=== PATIENT | female | born 1995 | race African-American/Black ===

== ENCOUNTER 2025-02-14 09:50 | Outpatient (CLI) | payer OTHER, SELFPAY ==
--- OUTSIDE RECORDS SUMMARY | 2025-02-14 10:05 | XMS_ITS | Clinical Summary ---
Author Organization [facility] Address [address] [place] [address] Phone Care Team Providers Care Psychologist Military Personnel Name Role Phone Unavailable Primary Care Provider Unavailabl e Allergies No known active allergies Medications ibuprofen (MOTRIN) 600 mg tablet Take 1 Tablet (600 mg) by mouth every 6 hours as needed for Pain. 40 Tablet 07/23/2024 8:58 PM CDT 07/23/2024 Active HYDROcodone-acet aminophen (NORCO) 5-325 mg tabletIndication s:Sprain of right ankle, unspecified ligament, initial encounter Take 1 Tablet by mouth every 4 hours as needed for Pain. Max Daily Amount: 6 Tablets 30 Tablet 07/23/2024 8:58 PM CDT 07/23/2024 Active Encounters Date Type Department Care Team Description 01/21/2025 External Device Data [facility] Provider, Abstract 01/08/2025 External Device Data [facility] Provider, Abstract 01/07/2025 External Device Data [facility] Provider, Abstract 12/24/2024 External Device Data [facility] Provider, Abstract 12/10/2024 External Device Data [facility] Provider, Abstract 11/26/2024 External Device Data [facility] Provider, Abstract 11/26/2024 External Device Data [facility] Provider, Abstract 11/26/2024 External Device Data [facility] AB[facility]CTION Provider, Abstract from Last 3 Months Social History Tobacco Use Types Packs/Day Years Used Date Smoking Tobacco: Never Tobacco Cessation:Counseling Given: Not Answered Feeling Safe Answer Date Recorded Are you in a relationship wi th someone who hurts you emotionally and/or physically? No 07/23/2024 Comments Unknown Sex and Gender Information Value Date Recorded Sex Assigned at Not on file Legal Sex Female 7:39 PM CDT Gender Identity Not on file Sexual Orientation Not on file Last Filed Vital Signs Vital Sign Reading Time Taken Comments Blood Pressure 159/113 07/23/2024 8:43 PM CDT Pulse 89 07/23/2024 8:50 PM CDT Temperature 36.3 C (97.3 F) 07/23/2024 7:41 PM CDT Respiratory Rate 21 07/23/2024 8:50 PM CDT Oxygen Saturation 100% 07/23/2024 8:50 PM CDT Inhaled Oxygen Concentration - - Weight 122.9 kg (271 lb) 07/23/2024 7:41 PM CDT Height 172.7 cm (5' 8 ) 07/23/2024 7:41 PM CDT Body Mass Index 41.21 07/23/2024 7:41 PM CDT Plan of Treatment Health Maintenance Due Date Last Done Comments HPV/Cotest (21-29) 2017 DTAP/TDAP/TD VACCINES (7 - T d or Tdap) 01/24/2018 01/25/2008, 07/05/2000, 07/02/1999, Additional history exists INFLUENZA VACCINE (#1) 2024 CERVICAL CANCER SCREENING 11/23/2025 PAP SMEAR 11/23/2025 11/23/2022 HEPATITIS B VACCINES Completed 04/02/1997, 1996, 1996 HPV VACCINES Completed 07/19/2012, 1210/2008, 01/25/2008 Insurance WORKERS COMP RX [employer]RX Commercial
--- OUTSIDE RECORDS SUMMARY | 2025-02-14 10:05 | XMS_ITS | Clinical Summary ---
Author Organization [facility] Virtual Care Address [facility] [place] [address] Phone Care Team Providers Care Jewelry Bench Worker Name Role Phone Nicholas Avila MD Primary Care Prov ider Allergies No known active allergies Medications naproxen (NAPROSYN) 500 mg tablet Take 1 tablet (500 mg total) by mouth 2 (two) times a day with meals 30 tablet 3 Active benzonatate (TESSALON) 100 mg capsuleIndications :Cough Take 1 capsule (100 mg total) by mouth every 8 (eight) hours 21 capsule 4 Active ondansetron ODT (ZOFRAN-ODT) 4 mg disintegrating tablet Take 1 tablet (4 mg total) by mouth every 8 (eight) hours as needed for nausea or vomiting 20 tablet 4 Active ketorolac (TORADOL) 10 mg tablet Take 1 tablet (10 mg total) by mouth every 6 (six) hours as needed for pain 20 tablet 4 Active HYDROcodone-acetam inophen (NORCO) 5-325 mg per tabletIndications: Pain Take 1 tablet by mouth every 6 (six) hours as needed for pain for up to 15 doses 15 tablet 4 Active methylPREDNISolone (Medrol, Kenji,) 4 mg DosepackIndication s:Finger injury, initial encounter Take as directed on package 1 packet 4 Active ondansetron ODT (ZOFRAN-ODT) 4 mg disintegrating tablet Take 1 tablet (4 mg total) by mouth every 8 (eight) hours as needed for nausea or vomiting 20 tablet 5 Active metoclopramide (REGLAN) 10 mg tablet Take 1 tablet (10 mg total) by mouth every 6 (six) hours 30 tablet 5 Active famotidine (PEPCID) 20 mg tablet Take 1 tablet (20 mg total) by mouth 2 (two) times a day as needed for heartburn 20 tablet 5 Active Active Problems Problem Noted Date Diagnosed Date Left hand pain 10/09/2024 Finger injury, initial encounter 10/09/2024 Encounters Date Type Department Care Team Description 01/20/2025 11:01 AM CDT - 01/20/2025 2:44 PM CDT Emergency [address] [address] Shortness of breath (Primary Dx) Discharge Disposition: Discharge to home or self care from Last 3 Months Immunizations Immunization Administration Dates Next Due DTP 01/10/1997,1996,1996 DTaP 07/05/2000,07/02/1999 HPV, Quadrivalent 07/19/2012,09/22/2009,01/25/20 08 Hep A, Ped Unspecified 09/22/2009 Hep A, Pediatric 01/25/2008 Hep B, Adolescent or Pediatric 04/02/1997,1995,1996 HiB 07/02/1999, 7,1996,08/29 Influenza, Unspecified 12/21/2023(Deferr ed: Patient Refused),07/23/2022(Deferred: Patient Refused),07/23/2022(Deferred: Patient Refused) MMR 02/27/2014,07/05/2000 Meningococcal MCV4P (Menactra) 01/25/2008 Meningococcal Polysaccharide (Menomune) 09/22/2009 OPV 07/05/2000, 9,01/10/1997,10/28,1996 Tdap 01/25/2008 Varicella 01/25/2008,12/12/2002 Medical History Medical History Date Comments Obesity Alpha thalassemia 02/10/2023 labs from [facility] Family History Medical History Relation Name Comments No Known Problems Father No Known Problems Mother Relation Name Status Comments Father Alive Mother Alive Social History Tobacco Use Types Packs/Day Years Used Date Smoking Tobacco: Never Smokeless Tobacco: Never Tobacco Cessation:Counseling Given: Not Answered Alcohol Use Standard Drinks/Week Comments Yes 0 (1 standard drink = 0.6 oz pur e alcohol) occasional AUDIT-C Answer Date Recorded Q1: How often do you have a drink containing alc ohol? 2-3 times a week 12/06/2022 Q2: How many drinks containi ng alcohol do you have on a typical day when you are drinking? 1 or 2 12/06/2022 Q3: How often do you have si x or more drinks on one occasion? Weekly 12/06/2022 PHQ-2 Answer Date Recorded PHQ-2 Total Score (If total score is 3 or more points, staff should administer the PHQ-9) 0 11/23/2022 Personal Safety Answer Date Recorded Have you ever been in or are you currently in a harmful physical or emotional relationship or is someone making you feel afraid or unsafe? Denies 01/20/2025 Comments No Sex and Gender Information Value Date Recorded Sex Assigned at Not on file Legal Sex Female 10:12 AM CDT Gender Identity Female 07/29/2023 9:35 AM CDT Sexual Orientation Not on file Obstetrics History Last Filed Vital Signs Vital Sign Reading Time Taken Comments Blood Pressure 140/79 01/20/2025 2:43 PM CDT Pulse 77 01/20/2025 2:43 PM CDT Temperature 36.8 C (98.3 F) 01/20/2025 2:43 PM CDT Respiratory Rate 18 01/20/2025 2:43 PM CDT Oxygen Saturation 100% 01/20/2025 2:43 PM CDT Inhaled Oxygen Concentration - - Weight 121.6 kg (268 lb) 01/20/2025 11:59 AM CDT Height 172.7 cm (5' 8 ) 01/20/2025 11:59 AM CDT Body Mass Index 40.75 01/20/2025 11:59 AM CDT Plan of Treatment Health Maintenance Due Date Last Done Comments Hepatitis C Screening 1996 DTaP/Tdap/Td Vaccine (7 - Td or Tdap) 01/24/2018 01/25/2008, 07/05/2000, 07/02/1999, Additional history exists Cervical Cancer Screening 11/23/2023 11/23/2022 Depression Screening 11/23/2023 11/23/2022 Regular Well Visit/Exam 18-64 11/23/2023 11/23/2022 Covid-19 Vaccine ( season) 2024 03/05/2022 Hepatitis B Screening Completed 04/02/1997 , 1996, 1996 Varicella Vaccines Completed 01/25/2008, 12/12/2002 HPV Vaccines Completed 07/19/2012, 12/0 10/2008, 01/25/2008 Influenza Vaccine Discontinued Pneumococcal vaccine <65 Aged Out No longer eligible based on patient's age to complete this topic Procedures Procedure Name Priority Date/Time Associated Diagnosis Comments XR CHEST PA LATERAL 2 VIEWS ED 01/20/2025 12:45 PM CDT EGFR STAT 01/20/2025 12:23 PM CDT DIFFERENTIAL AUTO STAT 01/20/2025 12: 23 PM CDT D-DIMER, QUANTITATIVE STAT 01/20/2025 12:23 PM CDT TROPONIN T HIGH-SENSITIVITY SERIES (BASELINE, 2HR, 4HR, 6HR) STAT 01/20/2025 12:23 PM CDT COMPREHENSIVE METABOLIC PANEL STAT 01/20/2025 12:23 PM CDT CBC WITH AUTO DIFFERENTIAL STAT 01/20/2025 12:23 PM CDT INFLUENZA A/B, RSV, AND COVID-19 PCR STAT 01/20/2025 12:23 PM CDT ECG 12-LEAD STAT 01/20/2025 12:04 PM CDT PAP WITH REFLEX TO HIGH RISK HPV Routine 11/23/2022 7:26 AM NAUMKEAG OPERATOR Encounter for well woman exam with routine gynecological exam Screening for cervical cancer from Last 3 Months or Most Recently Relevant to Health Maintenance Results * XR Chest Pa Lateral 2 Vw (01/20/2025 12:45 PM CDT) Anatomical Region Laterality Modality Body, Chest N/A Computed Radiogr aphy 01/20/2025 1:09 PM CDT Narrative 01/20/2025 1:13 PM CDT EXAM DESCRIPTION: XR CHEST PA LATERAL 2 VIEWS REASON FOR STUDY: Shortness of breath since last night. TECHNIQUE: PA and lateral radiographic views of the chest COMPARISON: Chest radiograph 11/10/2024 FINDINGS: LUNGS/PLEURAE: No consolidation or pneumothorax. No pleural effusion. HEART/MEDIASTINUM: Heart size is normal. Normal mediastinal and hilar contours. HARDWARE/LINES/TUBES: None. BONES: No acute findings. IMPRESSION: No acute radiographic abnormality. THIS IS AN ELECTRONICALLY VERIFIED FINAL REPORT 01/20/2025 1:13 PM - Electronically signed by Julio Do M.D. LB T: Report ID: [id number] Reading Location: [id number] Procedure Note Julio Do MD - 01/20/2025 EXAM DESCRIPTION: XR CHEST PA LATERAL 2 VIEWS REASON FOR STUDY: Shortness of breath since last night. TECHNIQUE: PA and lateral radiographic views of the chest COMPARISON: Chest radiograph 11/10/2024 FINDINGS: LUNGS/PLEURAE: No consolidation or pneumothorax. No pleural effusion. HEART/MEDIASTINUM: Heart size is normal. Normal mediastinal and hilar contours. HARDWARE/LINES/TUBES: None. BONES: No acute findings. IMPRESSION: No acute radiographic abnormality. THIS IS AN ELECTRONICALLY VERIFIED FINAL REPORT 01/20/2025 1:13 PM - Electronically signed by Julio Do M.D. LB T: Report ID: [id number] Reading Location: [id number] Alivia Lawler PA IMG XR PROCEDURES Final Resul t * Troponin T high-sensitivity series (baseline, 2hr, 4hr, 6hr) (01/20/2025 12:23 PM CDT) Pathologist [facility] Trop T hs <6 <=14 ng/L Comment: Interpretive Data For further hscTnT resources including the diagnostic algorithm and an aid in interpretation, copy and paste this link: [email or web address].testcatalog.org/[email or web address] Current Interpretive Data last revised 2020. Blood 01/20/2025 12:2 3 PM CDT 01/20/2025 12:26 PM CDT Alivia BURNS LAB BLOOD ORDERABLES Final Re sult [facility] [address] [employer] [place] [address] * Influenza A/B, RSV, and COVID-19 PCR Nasopharyngeal (01/20/2025 12:23 PM CDT) [facility] COVID-19 RNA Negative Negative Influenza A RNA Negative Negative [facility] Influenza B RNA Negative Negative [facility] RSV RNA Negative Negative [facility] Comment: Interpretive data: Testing performed by [facility]. This test is performed using the [employer] Xpert Xpress CoV-2/Flu/RSV plus assay. This is a multiplex, real-time reverse transcriptase PCR assay intended for the qualitative detection of nucleic acid from SARS-CoV-2, influenza A, influenza B, and respiratory syncytial virus. This assay has been cleared by the [place] Food and Drug administration. The performance characteristics have been verified by the [facility]. Results must be considered in the clinical context, and a negative result does not rule out infection. Interpretive Data last revised 2023 Nasopharyngeal 01/20/2025 12 :23 PM CDT 01/20/2025 12:26 PM CDT Narrative [facility] - 01/20/2025 1:06 PM CDT Is the Patient experiencing symptoms consistent with COVID?->Unknown Alivia BURNS LAB MICROBIOLOGY - GENERAL OR DERABLES Final Result Performing Organization Address City/[facility]/ZIP Co de Phone Number [facility] [address] [place] [address] * eGFR (01/20/2025 12:23 PM CDT) [facility] eGFR >90 >=60 mL/min/1. 73 m2 Comment: Interpretive Data Reference Interval Normal >/= 90 mL/min/1.73m2 Mildly decreased* 60 - 89 mL/min/1.73m2 Mildly to moderately decreased 45 - 59 mL/min/1.73m2 Moderately to severely decreased 30 - 44 mL/min/1.73m2 Severely decreased 15 - 29 mL/min/1.73m2 Kidney Failure < 15 mL/min/1.73m2 *Relative to young adult level Estimated glomerular filtration rate is determined by the 2020 CKD-EPI equation recommended by the National Kidney Foundation (A Unifying Approach to GFR Estimation: Recommendations of the NKF-ASK Task Force on Reassessing the Inclusion of Race in Diagnosing Kidney Disease, JASN 2020). The CKD-EPI equation should not be used for patients with unstable renal function and has not been validated in children and those over 70. Current interpretive data was last reviewed 2021. Blood 01/20/2025 12:2 3 PM CDT 01/20/2025 12:26 PM CDT us Alivia BURNS LAB BLOOD ORDERABLES Final Re sult [facility] [address] [place] [address] * (ABNORMAL) Differential, auto (01/20/2025 12:23 PM CDT) [facility] Neutrophil abs 3.4 1.5 - 6.5 K/cumm Imm gran abs 0.0 0.0 - 0.1 K/cumm [facility] Lymphocyte abs 3.5(H) 0.8 - 3.3 K/cumm [facility] Monocyte abs 0.7 0.2 - 0.8 K/cumm [facility] Eosinophil abs 0.1 0.0 - 0.5 K/cumm [facility] Basophil abs 0.1 0.0 - 0.1 K/cumm [facility] Neutrophil pct 43.3 % [facility] Comment: Interpretive Data Percent cell count reference ranges are not reported, since discordance with absolute values may lead to misinterpretation of CBC data. Current Interpretive Data was last revised on 2018. Imm gran pct 0.3 % [facility] Comment: Interpretive Data Percent cell count reference ranges are not reported, since discordance with absolute values may lead to misinterpretation of CBC data. Current Interpretive Data was last revised on 2018. Lymphocyte pct 44.7 % [facility] Comment: Interpretive Data Percent cell count reference ranges are not reported, since discordance with absolute values may lead to misinterpretation of CBC data. Current Interpretive Data was last revised on 2018. Monocyte pct 9.1 % [facility] Comment: Interpretive Data Percent cell count reference ranges are not reported, since discordance with absolute values may lead to misinterpretation of CBC data. Current Interpretive Data was last revised on 2018. Eosinophil pct 1.4 % [facility] Comment: Interpretive Data Percent cell count reference ranges are not reported, since discordance with absolute values may lead to misinterpretation of CBC data. Current Interpretive Data was last revised on 2018. Basophil pct 1.2 % [facility] Comment: Interpretive Data Percent cell count reference ranges are not reported, since discordance with absolute values may lead to misinterpretation of CBC data. Current Interpretive Data was last revised on 2018. Blood 01/20/2025 12:2 3 PM CDT 01/20/2025 12:26 PM CDT us Alivia BURNS LAB BLOOD ORDERABLES Final Re sult [facility] [address] [facility] [place] [address] * (ABNORMAL) CBC with auto differential (01/20/2025 12:23 PM CDT) WBC 7.8 3.8 - 9.9 K/cumm Hgb 8.3(L) 11.9 - 15.5 g/dL [facility] Hct 31.4(L) 35.6 - 45.5 % [facility] Plt 420(H) 150 - 400 K/cumm [facility] MPV 9.1 9.1 - 12.3 fL [facility] RBC 5.45(H) 3.90 - 5.20 M/cumm [facility] MCV 57.6(L) 81.3 - 96.4 fL [facility] MCH 15.2(L) 27.1 - 33.3 pg [facility] MCHC 26.4(L) 32.3 - 35.7 g/dL [facility] RDW CV 23.8(H) 11.1 - 14.9 % [facility] RDW SD 44.7 35.7 - 48.1 fL [facility] NRBC abs 0.00 0.00 - 0.01 K/cumm [facility] Blood 01/20/2025 12:2 3 PM CDT 01/20/2025 12:26 PM CDT Alivia BURNS LAB BLOOD ORDERABLES Final Re sult [facility] [address] [facility] [place] [address] * D-dimer, quantitative (01/20/2025 12:23 PM CDT) D-Dimer 360 <=499 ng/mL FEU Comment: Interpretive data FDA approved the D-dimer, in conjunction with a low or moderate pretest probability score, to exclude venous thromboembolic events (VTE) (PE and DVT) in outpatients when the D-dimer result is < 500 ng/ml FEU. Evidence supports using an age-adjusted D-dimer cut-off for outpatients older than 50 (age x 10) to improve specificity without sacrificing sensitivity. Example: age 68, VTE cut-off 680 ng/ml FEU. References; Schouten HT et al. Brit Med J. 2013;346:f2492. Saadia et al. Annals Int Med. 2015;163:701-11. Current interpretive data was last revised on 2019. Blood 01/20/2025 12:2 3 PM CDT 01/20/2025 12:26 PM CDT Alivia BURNS LAB BLOOD ORDERABLES Final Re sult [facility] [address] [facility] [place] [address] * Comprehensive metabolic panel (01/20/2025 12:23 PM CDT) Sodium 139 135 - 145 mmol/L Potassium, pl 3.9 3.3 - 4.9 mmol/L [facility] Chloride 105 97 - 110 mmol/L [facility] CO2 24 22 - 32 mmol/L [facility] Anion gap 10 2 - 15 mmol/L [facility] BUN 8 6 - 25 mg/dL [facility] Creatinine 0.61 0.60 - 1.10 mg/dL [facility] Glucose 84 70 - 199 mg/dL [facility] Comment: Interpretive Data Fasting glucose >/= 126 mg/dl is diagnostic for diabetes. Fasting is defined as no caloric intake for at least 8 hours. Fasting glucose between 100 mg/dl to 125 mg/dl is diagnostic of prediabetes. In a patient with classic symptoms of hyperglycemia or hyperglycemic crisis, a random glucose >/= 200 mg/dl is diagnostic for diabetes. In the absence of unequivocal hyperglycemia, results should be confirmed by repeat testing. The classification and Diagnosis of Diabetes Diabetes Care 2021; 46: S19-S40. Current interpretive data was last revised 2022. Calcium 9.2 8.5 - 10.3 mg/dL [facility] Bilirubin, total 0.2 0.1 - 1.2 mg/dL [facility] Protein, pl 7.3 6.5 - 8.5 g/dL [facility] Albumin 4.4 3.5 - 5.0 g/dL [facility] Alk phos 70 40 - 130 Units/L [facility] ALT 9 7 - 45 Units/L [facility] AST 19 10 - 45 Units/L [facility] Blood 01/20/2025 12:2 3 PM CDT 01/20/2025 12:26 PM CDT Alivia BURNS LAB BLOOD ORDERABLES Final Re sult [facility] [address] [facility] [place] [address] * ECG 12 lead (01/20/2025 12:04 PM CDT) Ventricular Rate EKG/Min 71 BPM [facility] Atrial Rate 71 BPM [facility] WI-Interval (MSEC) 176 ms [facility] QRS-Interval (MSEC) 94 ms [facility] QT-Interval (MSEC) 398 ms [facility] QTc 432 ms [facility] P [place] 44 degrees [facility] R [place] 43 degrees [facility] T [place] 39 degrees [facility] Diagnosis Normal sinus rhythm Normal ECG When compared with ECG of 10-NOV-2024 10:31, No significant change was found Confirmed by LOVELY MORTON M.D. ([id number]) on 01/21/2025 8:50:36 AM [facility] 01/20/2025 12:0 4 PM CDT 01/21/2025 8:50 AM CDT us Alivia BURNS ECG ORDERABLES Final Result Performing Organization Address [facility] de Phone Number [facility] * Pap with reflex to High Risk HPV (11/23/2022 7:26 AM NAUMKEAG OPERATOR) Thin prep (Pap test) 11/23/2022 7:26 AM NAUMKEAG OPERATOR 11/24/2022 7:26 AM NAUMKEAG OPERATOR Narrative PATHOLOGY [facility] - 11/28/2022 11:00 AM NAUMKEAG OPERATOR [facility] Department of Pathology [address] [id number] Final Report Note to Patients: This report may contain a detailed description of human tissue sent by a health care provider to the laboratory for pathologic evaluation. The content of this report is essential for diagnosis and may provide important critical findings. This information may be unfamiliar to patients to review without a medical professional present. It is advised that the patient review this report in the presence of a health care provider who can answer questions and explain the details. Patient Name: APARNA VELASCO Address: [address], [place] Gender: F : 1995 (Age: 27) Service: Location: [facility] #: [id number] Patient Type: [facility] SPECIMEN Taken: 11/23/2022 Received: 11/24/2022 Accessioned:: 11/25/2022 Reported: 11/28/2022 [facility]ician(s): [facility] Diagnosis: Imaged Thinprep Pap Test w/ Reflex HPV - Dewaxer Cytologic Material: Statement of Specimen Adequacy: - Satisfactory for evaluation; endocervical/transformation zone component present General Categorization: - Negative for intraepithelial lesion or malignancy OLIVA Montemayor(ASCP) Report Electronically Reviewed and Signed Out By OLIVA Montemayor(ASCP) 11/28/2022 11:00:44Specimen(s) Received: A: Imaged Thinprep Pap Test w/ Reflex HPV - Dewaxer Cytologic Material Clinical History: The Pap test is a screening test used to aid in the detection of cervical cancer and its precursors. It should not be the sole means by which malignant and premalignant lesions are diagnosed. Both false negative and false positive results may occur. It also has poor sensitivity for the detection of endometrial lesions and should not be used to evaluate suspected endometrial abnormalities. For these reasons it is most important to obtain Pap tests at regular intervals. The performance characteristics of some immunohistochemical stains, fluorescence in-situ hybridization tests and immunophenotyping by flow cytometry cited in this report (if any) were determined by the Surgical Pathology Department at [facility] as part of an ongoing quality process lead program and in compliance with federally mandated regulations drawn from the Clinical Laboratory Improvement Act of 1988 (CLIA '88). Some of these tests rely on the use of analyte specific reagents and are subject to specific labeling requirements by the US Food and Drug Administration. Such diagnostic tests may only be performed in a facility that is certified by the Department of Health and Human Services as a high complexity laboratory under CLIA '88. The FDA has determined that such clearance or approval is not necessary. This test is used for clinical purposes. It should not be regarded as investigational or for research. Nevertheless, federal rules concerning the medical use of analyte specific reagents require that the following disclaimer be attached to the report: This test was developed and its performance characteristics determined by the Surgical Pathology Department [facility]. It has not been cleared or approved by the U. S. Food and Drug Administration. Cassia Guzman LAB CYTOLOGY ORDERABLES Final Result PATHOLOGY [facility] from Last 3 Months or Most Recently Relevant to Health Maintenance Insurance [facility] [place] [address] [facility] Care Teams Jewelry Bench Worker Relationship Specialty Start Date End Date Nicholas Avila MD [address] [place] [address] PCP - General Family Medicine 03/10/24
--- OUTSIDE RECORDS SUMMARY | 2025-02-14 10:05 | XMS_ITS | Referral Summary ---
Author Organization [facility] Virtual Care Address [address] [place] [phone] Phone Care Team Providers Care Machine Adjuster Leader Case Trim Name Role Phone Nicholas Avila MD Primary Care Prov ider Encounters Date Type Department Care Team Description 01/20/2025 11:01 AM CDT - 01/20/2025 2:44 PM CDT Emergency [address] [address] Shortness of breath (Primary Dx) Discharge Disposition: Discharge to home or self care from Last 3 Months Allergies No known active allergies Medications naproxen [...] pain 10/09/2024 Finger injury, initial encounter 10/09/2024 Immunizations Immunization Administration Dates Next Due DTP 01/10/1997,1996,1996 DTaP 07/05/2000,07/02/1999 HPV, Quadrivalent 07/19/2012,09/22/2009,01/25/20 08 Hep A, Ped Unspecified 09/22/2009 Hep A, Pediatric 01/25/2008 Hep B, Adolescent or Pediatric 04/02/1997,1995,1996 HiB 07/02/1999, 7,1996,08/29 Influenza, Unspecified 12/21/2023(Deferr ed: Patient Refused),07/23/2022(Deferred: Patient Refused),07/23/2022(Deferred: Patient Refused) MMR 02/27/2014,07/05/2000 Meningococcal MCV4P (Menactra) 01/25/2008 Meningococcal Polysaccharide (Menomune) 09/22/2009 OPV 07/05/2000, 9,01/10/1997,10/28,1996 Tdap 01/25/2008 Varicella 01/25/2008,12/12/2002 Social History Tobacco Use Types Packs/Day Years [...] AM CDT Sexual Orientation Not on file Last Filed [...] 01/20/2025 11:59 AM CDT Plan of Treatment Not on file Procedures Procedure Name Priority Date/Time Associated Diagnosis [...] HIGH RISK HPV Routine 11/23/2022 7:26 AM STYLE ADVISOR Encounter for well woman exam with routine [...] Julio Do M.D. LB T: Report ID: [id number] Reading Location: [id number] Procedure Note Julio Do MD - 01/20/2025 [...] Julio Do M.D. LB T: Report ID: [id number] Reading Location: [place] [address] Alivia [facility]NS IMG XR PROCEDURES Final Resul t * Troponin T high-sensitivity series (baseline, 2hr, 4hr, 6hr) (01/20/2025 12:23 PM CDT) Trop T hs <6 <=14 ng/L Comment: Interpretive Data For further hscTnT resources including the diagnostic algorithm and an aid in interpretation, copy and paste this link: https://nrl.testcatalog.org/show/hsTrop Current Interpretive Data last revised 2020. Blood 01/20/2025 12:2 3 PM CDT 01/20/2025 12:26 PM CDT Alivia BURNS LAB BLOOD ORDERABLES Final Re sult [facility] [address] [facility] Department [place] [address] * Influenza A/B, RSV, and COVID-19 PCR Nasopharyngeal (01/20/2025 12:23 PM CDT) COVID-19 RNA Negative Negative Influenza A RNA Negative Negative [facility] Influenza B RNA Negative Negative [facility] RSV RNA Negative Negative [facility] Comment: Interpretive data: Testing performed by [facility]. This test is performed using the [employer] Xpert Xpress CoV-2/Flu/RSV plus assay. This is a multiplex, real-time reverse transcriptase PCR assay intended for the qualitative detection of nucleic acid from SARS-CoV-2, influenza A, influenza B, and respiratory syncytial virus. This assay has been cleared by the [place] Food and Drug administration. The performance characteristics have been verified by the [facility]. Results must be considered in the clinical context, and a negative result does not rule out infection. Interpretive Data last revised 2023 Nasopharyngeal 01/20/2025 12 :23 PM CDT 01/20/2025 12:26 PM CDT Narrative [facility] - 01/20/2025 1:06 PM CDT Is the Patient experiencing symptoms consistent with COVID?->Unknown Alivia [facility] LAB MICROBIOLOGY - GENERAL OR DERABLES Final Result [facility] [address] [facility] Department [place] [address] * eGFR (01/20/2025 12:23 PM CDT) eGFR >90 >=60 mL/min/1. 73 m2 Comment: [...] of Race in Diagnosing Kidney Disease, JASN 202). The CKD-EPI equation should not be used for patients with unstable renal function and has not been validated in children and those over 70. Current interpretive data was last reviewed 2021. Blood 01/20/2025 12:2 3 PM CDT 01/20/2025 12:26 PM CDT us Alivia B[facility]NS LAB BLOOD ORDERABLES Final Re sult [facility] [address] [facility] Department [place] [address] * (ABNORMAL) Differential, auto (01/20/2025 12:23 PM CDT) Pathologist [facility] Neutrophil abs 3.4 1.5 - 6.5 K/cumm Imm gran abs 0.0 0.0 - 0.1 K/cumm [facility] Lymphocyte abs 3.5(H) 0.8 - 3.3 K/cumm [facility] Monocyte abs 0.7 0.2 - 0.8 K/cumm [facility] Eosinophil abs 0.1 0.0 - 0.5 K/cumm [facility] Basophil abs 0.1 0.0 - 0.1 K/cumm [facility] Neutrophil pct 43.3 % [facility] Comment: Interpretive Data Percent cell count reference ranges are not reported, since discordance with absolute values may lead to misinterpretation of CBC data. Current Interpretive Data was last revised on 2018. Imm gran pct 0.3 % [facility] Comment: Interpretive Data Percent cell count reference ranges are not reported, since discordance with absolute values may lead to misinterpretation of CBC data. Current Interpretive Data was last revised on 2018. Lymphocyte pct 44.7 % [facility] Comment: Interpretive Data Percent cell count reference ranges are not reported, since discordance with absolute values may lead to misinterpretation of CBC data. Current Interpretive Data was last revised on 2018. Monocyte pct 9.1 % [facility] Comment: Interpretive Data Percent cell count reference ranges are not reported, since discordance with absolute values may lead to misinterpretation of CBC data. Current Interpretive Data was last revised on 2018. Eosinophil pct 1.4 % [facility] Comment: Interpretive Data Percent cell count reference ranges are not reported, since discordance with absolute values may lead to misinterpretation of CBC data. Current Interpretive Data was last revised on 2018. Basophil pct 1.2 % [facility] Comment: Interpretive Data Percent cell count reference ranges are not reported, since discordance with absolute values may lead to misinterpretation of CBC data. Current Interpretive Data was last revised on 2018. Blood 01/20/2025 12:2 3 PM CDT 01/20/2025 12:26 PM CDT Alivia B[facility] LAB BLOOD ORDERABLES Final Re sult Performing Organization Address City/[facility]/ZIP Co de Phone Number [facility] [address] Department [place] [address] * (ABNORMAL) CBC with auto differential (01/20/2025 12:23 PM CDT) WBC 7.8 3.8 - 9.9 K/cumm Hgb 8.3(L) 11.9 - 15.5 g/dL [facility] Hct 31.4(L) 35.6 - 45.5 % [facility] Plt 420(H) 150 - 400 K/cumm [facility] MPV 9.1 9.1 - 12.3 fL [facility] RBC 5.45(H) 3.90 - 5.20 M/cumm [facility] MCV 57.6(L) 81.3 - 96.4 fL [facility] MCH 15.2(L) 27.1 - 33.3 pg [facility] MCHC 26.4(L) 32.3 - 35.7 g/dL [facility] RDW CV 23.8(H) 11.1 - 14.9 % [facility] RDW SD 44.7 35.7 - 48.1 fL [facility] NRBC abs 0.00 0.00 - 0.01 K/cumm [facility] Blood 01/20/2025 12:2 3 PM CDT 01/20/2025 12:26 PM CDT Alivia [facility] LAB BLOOD ORDERABLES Final Re sult Performing Organization Address City/[facility]/ZIP Co de Phone Number [facility] [address] [facility] [place] [address] * D-dimer, quantitative (01/20/2025 12:23 PM CDT) [facility] D-Dimer 360 <=499 ng/mL FEU Comment: Interpretive [...] 68, VTE cut-off 680 ng/ml FEU. References; Schoutguanakito HT et al. Brit Med J. 2013;346:f2492. Saadia ARCOS et al. Annals Int Med. 2015;163:701-11. Current interpretive data was last revised on 2019. Blood 01/20/2025 12:2 3 PM CDT 01/20/2025 12:26 PM CDT us Alivia BURNS LAB BLOOD ORDERABLES Final Re sult [facility] [address] [facility] [place] [address] * Comprehensive metabolic panel (01/20/2025 12:23 PM CDT) [facility] Sodium 139 135 - 145 mmol/L Potassium, pl 3.9 3.3 - 4.9 mmol/L [facility] Chloride 105 97 - 110 mmol/L [facility] CO2 24 22 - 32 mmol/L [facility] Anion gap 10 2 - 15 mmol/L [facility] BUN 8 6 - 25 mg/dL [facility] Creatinine 0.61 0.60 - 1.10 mg/dL [facility] Glucose 84 70 - 199 mg/dL [facility] Comment: Interpretive Data Fasting glucose >/= 126 [...] classification and Diagnosis of Diabetes Diabetes Care 202; 46: S19-S40. Current interpretive data was last revised 2022. Calcium 9.2 8.5 - 10.3 mg/dL [facility] Bilirubin, total 0.2 0.1 - 1.2 mg/dL [facility] Protein, pl 7.3 6.5 - 8.5 g/dL [facility] Albumin 4.4 3.5 - 5.0 g/dL [facility] Alk phos 70 40 - 130 Units/L [facility] ALT 9 7 - 45 Units/L [facility] AST 19 10 - 45 Units/L [facility] Blood 01/20/2025 12:2 3 PM CDT 01/20/2025 12:26 PM CDT Al[facility] LAB BLOOD ORDERABLES Final Re sult [facility] [address] [facility] Department of Laboratories [place], [place] [id number] * ECG 12 lead (01/20/2025 12:04 PM CDT) Ventricular Rate EKG/Min 71 BPM [facility] Atrial Rate 71 BPM [facility] IA-Interval (MSEC) 176 ms [facility] QRS-Interval (MSEC) 94 ms [facility] QT-Interval (MSEC) 398 ms [facility] QTc 432 ms [facility] P Amagon 44 degrees [facility] R Amagon 43 degrees [facility] T Amagon 39 degrees [facility] Diagnosis Normal sinus rhythm Normal ECG When compared with ECG of 10-NOV-2024 10:31, No significant change was found Confirmed by LOVELY MORTON M.D. ([id number]) on 01/21/2025 8:50:36 AM [facility] 01/20/2025 12:0 4 PM CDT 01/21/2025 8:50 AM CDT us Alivia BURNS ECG ORDERABLES Final Result [facility] * Pap with reflex to High Risk HPV (11/23/2022 7:26 AM STYLE ADVISOR) Thin prep (Pap test) 11/23/2022 7:26 AM STYLE ADVISOR 11/24/2022 7:26 AM STYLE ADVISOR Narrative PATHOLOGY [facility] - 11/28/2022 11:00 AM STYLE ADVISOR [facility] Department of Pathology [address] [place] [address] Final Report Note to Patients: This report [...] the details. Patient Name: APARNA VELASCO Address: [address] [place] [address] Gender: F : 1995 (Age: 27) Service: Location: [facility] : [id number] [facility] #: [id number] Patient Type: [facility] SPECIMEN Taken: 11/23/2022 Received: 11/24/2022 Accessioned:: 11/25/2022 Reported: 11/28/2022 Physician(s): [facility] Diagnosis: Imaged Thinprep Pap Test w/ Reflex HPV - Wool Dyer Cytologic Material: Statement of Specimen Adequacy: - Satisfactory for evaluation; endocervical/transformation zone component present General Categorization: - Negative for intraepithelial lesion or malignancy OLIVA Montemayor(ASCP) Report Electronically Reviewed and Signed Out By OLIVA Montemayor(ASCP) 11/28/2022 11:00:44Specimen(s) Received: A: Imaged Thinprep Pap Test w/ Reflex HPV - Wool Dyer Cytologic Material Clinical History: The Pap test [...] determined by the Surgical Pathology Department at [facility] as part of an ongoing software quality manager program and in compliance with federally mandated [...] characteristics determined by the Surgical Pathology Department [facility]. It has not been cleared or approved by the [place]. [place]. Food and Drug Administration. Cassia Guzman LAB CYTOLOGY ORDERABLES Final Result [facility] from Last 3 Months or Most Recently Relevant to Health Maintenance Insurance [facility] Care Teams Machine Adjuster Leader Case Trim Relationship Specialty Start Date End Date Nicholas Avila MD [address] [place] [address] PCP - General Family Medicine 03/10/24
--- NOTE | 2025-02-14 10:36 | EST_ITS ---
Patient Info Name: Aparna Velasco Age: 29 years : 1995 Gender: Female Ht: 68 in Wt: 267 lbs BSA: 2.47 m2 HR: 78 bpm BP: 119 / 70 mmHg Exam Date: 02/14/2025 10:57 AM Exam Location: Echo Lab Patient Status: Outpatient Admit Date: 02/14/2025 Staff Ordering Physician: Nataliia Santillan DO Attending Provider: Nataliia Santillan DO Exercise Technologist: Brenda Valdivia [facility] Exercise Physician: Barry Nunes DO Exam Type: CA stress test treadmill Study Info A treadmill exercise stress test was performed. Summary 1. 1. Negative Ritchie exercise stress test for ischemic ST changes by ECG criteria. 2. 2. Reduced functional capacity, achieving 7 METs of workload. 3. 3. Appropriate HR response to exercise. 4. 4. Appropriate HR recovery at 1 minute post exercise. 5. 5. No imaging with stress testing. 6. 6. Patient informed of the above results. Protocol: Ritchie Stress ECG Details Stage: REST Duration (min): 1 min : 37 sec Speed (mph): 0.0 Grade (%): 0 HR (bpm): 76 SBP (mmHg): 119 DBP (mmHg): 70 METS: --- Stage: REST Duration (min): 8 min : 49 sec Speed (mph): 0.0 Grade (%): 0 HR (bpm): 94 SBP (mmHg): 119 DBP (mmHg): 70 METS: --- Stage: STAGE 1 Duration (min): 1 min : 0 sec Speed (mph): 1.7 Grade (%): 10 HR (bpm): 131 SBP (mmHg): 119 DBP (mmHg): 70 METS: --- Stage: STAGE 1 Duration (min): 2 min : 0 sec Speed (mph): 1.7 Grade (%): 10 HR (bpm): 146 SBP (mmHg): 119 DBP (mmHg): 70 METS: --- Stage: STAGE 1 Duration (min): 3 min : 0 sec Speed (mph): 1.7 Grade (%): 10 HR (bpm): 146 SBP (mmHg): 196 DBP (mmHg): 86 METS: --- Stage: STAGE 2 Duration (min): 1 min : 0 sec Speed (mph): 2.5 Grade (%): 12 HR (bpm): 159 SBP (mmHg): 196 DBP (mmHg): 86 METS: --- Stage: STAGE 2 Duration (min): 2 min : 0 sec Speed (mph): 2.5 Grade (%): 12 HR (bpm): 166 SBP (mmHg): 196 DBP (mmHg): 86 METS: --- Stage: STAGE 2 Duration (min): 2 min : 0 sec Speed (mph): 2.5 Grade (%): 12 HR (bpm): 166 SBP (mmHg): 196 DBP (mmHg): 86 METS: --- Stage: RECOVERY Duration (min): 0 min : 59 sec Speed (mph): 0.0 Grade (%): 0 HR (bpm): 129 SBP (mmHg): 196 DBP (mmHg): 86 METS: --- Stage: RECOVERY Duration (min): 1 min : 59 sec Speed (mph): 0.0 Grade (%): 0 HR (bpm): 96 SBP (mmHg): 179 DBP (mmHg): 87 METS: --- Stage: RECOVERY Duration (min): 2 min : 1 sec Speed (mph): 0.0 Grade (%): 0 HR (bpm): 97 SBP (mmHg): 179 DBP (mmHg): 87 METS: --- Rest HR: 94 bpm Peak HR: 169 bpm Rest Sys BP: 119 mmHg Peak Sys BP: 196 mmHg Max Pred HR: 192 bpm % Max Pred HR: 88 % Target HR: 163 bpm Max RPP: 33,124 bpm*mmHg Shaikh Score: 0 Termination Reason: Reached target heart rate or workload Cardiac Symptoms: Shortness of breath Max ST Seg Deviation: 1.10 mm Total Time: 5 min : 0 sec Rest Calderon BP: 70 mmHg Peak Calderon BP: 86 mmHg Angina Score: None Total METS: 7.1 Resting ECG Sinus rhythm, minimal Q waves in anterolat/inf leads. Stress ECG No ST changes. Arrhythmias None. Report Signatures
== END 2025-02-14 09:51 | disposition home or self-care (01) ==
LOC: ANHCARD 09:52
PROVIDERS: PCP Family Medicine; Visit Provider Family Medicine
DX: R07.9 Chest pain, unspecified (principal)
CPT/HCPCS: 93017